=== PATIENT | male | born 1990 | race Caucasian/White ===

== ENCOUNTER 2023-07-15 14:45 | Emergency (ER) | payer MEDICAID, OTHER ==
[~2023-07-15] VITALS: Ht 175.3 cm; Wt 61.2 kg
[2023-07-15 15:37] VITALS: BP 109/57; PULSE 101; RESP 18; TEMP 97.9; O2SAT 98
[2023-07-15 18:08] LABS: Amphetamine Screen, Urine Pos (NEGATIVE); Barbiturate Scree,Urine Neg (NEGATIVE); Benzodiazephine Screen, Urine Neg (NEGATIVE); Cannabinoid Screen, Urine Neg (NEGATIVE); Cocaine Screen, Urine Neg (NEGATIVE); Opiate Scree,Urine Neg (NEGATIVE); Phencyclidine Screen, Urine Neg (NEGATIVE)
== END 2023-07-15 17:36 | disposition home or self-care (01) ==
LOC: ER 14:45
DX: G56.01 Carpal tunnel syndrome, right upper limb (principal); Z79.899 Other long term (current) drug therapy
CPT/HCPCS: 73030; 80307